=== PATIENT | male | born 1960 | race Hispanic/Latino ===

== ENCOUNTER 2023-02-27 18:44 | Inpatient (IN) | payer OTHER ==
[~2023-02-27] VITALS: Ht 165.1 cm; Wt 83.9 kg
[2023-02-27] MEDS ORDERED: ONDANSETRON HCL INJ 2MG/ML 2ML 2 MG/ML VIAL IV STA (18:58)
[2023-02-27] MEDS ORDERED: Morphine 4mg INJECTION 4 MG/ML INJ IV ONE (19:00)
[2023-02-27] MEDS ORDERED: SODIUM CHLORIDE 0.9% 1000ML 1,000 ML IV ONE (19:00)
[2023-02-27 19:10] LABS: BASOPHILS % 0.1 % (0.0-1.0); HEMATOCRIT 46.1 % (38.2-49.6); HEMOGLOBIN 15.4 g/dL (14.0-18.0); LYMPHOCYTES # (AUTO) 0.6 (1.0-3.2); LYMPHOCYTES % 3.3 % (18.0-39.1); MEAN CORPUSCULAR HEMOGLOBIN 28.3 pg (28-32); MEAN CORPUSCULAR HGB CONC 33.4 g/dL (31-35); MEAN CORPUSCULAR VOLUME 84.7 fL (81-99); MONOCYTES # (AUTO) 0.8 (0.2-0.8); NEUTROPHILS # (AUTO) 17.6 (2.1-6.9); NEUTROPHILS % 92.3 % (38.7-80.0); PLATELET COUNT 339 x10e3/uL (140-360); RED BLOOD COUNT 5.44 x10e6/uL (4.3-5.7); RED CELL DISTRIBUTION WIDTH 13.4 % (11.7-14.4)
[2023-02-27 19:26] LABS: ALBUMIN 4.4 g/dL (3.5-5.0); ANION GAP 17.2 mmol/L (8-16); CALCIUM 9.8 mg/dL (8.4-10.2); CREATININE, SERUM 1.43 mg/dL (0.72-1.25); POTASSIUM 3.2 mmol/L (3.5-5.1)
[2023-02-27] MEDS: FENTANYL CITRATE/PF 100MCG/2 ML INJ IV ONE ×3 (21:00→21:41)
[2023-02-27] MEDS ORDERED: FENTANYL CITRATE/PF 100MCG/2 ML INJ IV ONE (21:15)
[2023-02-27] MEDS: SODIUM CHLORIDE 0.9% 1000ML 1,000 ML IV SCH (21:32)
[2023-02-27 21:58] LABS: CLARITY,URINE CLEAR (CLEAR); COLOR,URINE YELLOW (YELLOW); KETONES,URINE 2+ (NEGATIVE); LEUKOCYTE ESTERASE ,URINE NEGATIVE (NEGATIVE); NITRITE,URINE NEGATIVE (NEGATIVE); PROTEIN,URINE DIPSTICK TRACE (NEGATIVE); URINE UROBILINOGEN 0.2 mg/dL (0.2 - 1)
[2023-02-27 22:05] LABS: BACTERIA,URINE FEW /HPF; EPITHELIAL CELLS,URINE RARE /LPF; RBC,URINE 0-5 /HPF (0-5); WBC,URINE (MAN) 0-5 /HPF (0-5)
[2023-02-27] MEDS: Morphine 4mg INJECTION 4 MG/ML INJ IV PRN (22:54)
[2023-02-27] MEDS: ONDANSETRON HCL INJ 2MG/ML 2ML 2 MG/ML VIAL IV PRN (22:54)
[2023-02-27 23:53] VITALS: BP 142/93; PULSE 63; RESP 20; TEMP 97.7; O2SAT 100
[2023-02-28] VITALS (9 sets, daily range): BP systolic 132–157; BP diastolic 93–101; PULSE 63–81; RESP 18–20; TEMP 97.1–99.4; O2SAT 96–100
[2023-02-28] MEDS ORDERED: LISINOPRIL10 MG PO (00:14)
[2023-02-28] MEDS ORDERED: HYGROTON25 MG PO (00:14)
[2023-02-28] MEDS ORDERED: AMLODIPINE BESY10 MG PO (00:14)
[2023-02-28] MEDS ORDERED: FLOMAX0.4 MG PO (00:14)
[2023-02-28] MEDS: Morphine 4mg INJECTION 4 MG/ML INJ IV PRN ×5 (03:24→22:15)
[2023-02-28] MEDS: ONDANSETRON HCL INJ 2MG/ML 2ML 2 MG/ML VIAL IV PRN ×4 (03:24→17:56)
[2023-02-28] MEDS: SODIUM CHLORIDE 0.9% 1000ML 1,000 ML IV SCH ×4 (05:04→22:13)
[2023-02-28 05:19] LABS: BASOPHILS % 0.1 % (0.0-1.0); HEMATOCRIT 47.1 % (38.2-49.6); HEMOGLOBIN 15.7 g/dL (14.0-18.0); LYMPHOCYTES # (AUTO) 0.7 (1.0-3.2); LYMPHOCYTES % 3.4 % (18.0-39.1); MEAN CORPUSCULAR HEMOGLOBIN 28.6 pg (28-32); MEAN CORPUSCULAR HGB CONC 33.3 g/dL (31-35); MEAN CORPUSCULAR VOLUME 85.9 fL (81-99); NEUTROPHILS # (AUTO) 17.4 (2.1-6.9); PLATELET COUNT 314 x10e3/uL (140-360); RED BLOOD COUNT 5.48 x10e6/uL (4.3-5.7); RED CELL DISTRIBUTION WIDTH 13.3 % (11.7-14.4)
[2023-02-28 05:40] LABS: ANION GAP 14.2 mmol/L (8-16); CREATININE, SERUM 0.99 mg/dL (0.72-1.25); POTASSIUM 3.2 mmol/L (3.5-5.1)
[2023-02-28] MEDS ORDERED: MELATONIN 5 MG TABLET PO PRN (08:00)
[2023-02-28] MEDS ORDERED: POTASSIUM CHLORIDE 20MEQ/100ML 100 ML IV ONE (08:30)
[2023-02-28 09:21] LABS: CHOL/HDL RATIO 3.5 (3.9-4.7)
[2023-02-28] MEDS ORDERED: HYDRALAZINE HCL 20 MG/ML VIAL IV PRN (09:30)
[2023-02-28] MEDS ORDERED: GADOBENATE DIMEGLUMINE 1 ML IV ONE (11:59)
[2023-02-28] MEDS: ENOXAPARIN SOD INJ 40 MG/0.4 ML SYR SC SCH (17:56)
[2023-03-01] VITALS (8 sets, daily range): BP systolic 123–145; BP diastolic 76–95; PULSE 72–82; RESP 18; TEMP 97.7–99.1; O2SAT 94–97
[2023-03-01 04:40] LABS: BASOPHILS % 0.2 % (0.0-1.0); EOSINOPHILS % 0.1 % (0.0-6.0); HEMATOCRIT 41.8 % (38.2-49.6); HEMOGLOBIN 13.8 g/dL (14.0-18.0); LYMPHOCYTES # (AUTO) 1.2 (1.0-3.2); MEAN CORPUSCULAR HEMOGLOBIN 28.6 pg (28-32); MEAN CORPUSCULAR VOLUME 86.5 fL (81-99); MONOCYTES # (AUTO) 1.4 (0.2-0.8); MONOCYTES % 7.3 % (4.4-11.3); NEUTROPHILS % 85.8 % (38.7-80.0); PLATELET COUNT 244 x10e3/uL (140-360); RED BLOOD COUNT 4.83 x10e6/uL (4.3-5.7); RED CELL DISTRIBUTION WIDTH 13.9 % (11.7-14.4)
[2023-03-01 04:54] LABS: ANION GAP 11.2 mmol/L (8-16); CALCIUM 8.3 mg/dL (8.4-10.2); CREATININE, SERUM 0.91 mg/dL (0.72-1.25); POTASSIUM 3.2 mmol/L (3.5-5.1)
[2023-03-01] MEDS: SODIUM CHLORIDE 0.9% 1000ML 1,000 ML IV SCH ×2 (06:00→13:29)
[2023-03-01] MEDS ORDERED: POTASSIUM CHLORIDE 20MEQ/100ML 100 ML IV ONE ×2 (08:30→21:30)
[2023-03-01] MEDS: ENOXAPARIN SOD INJ 40 MG/0.4 ML SYR SC SCH (17:07)
[2023-03-01] MEDS ORDERED: POTASSIUM CHLORIDE 20 MEQ TAB CR PO ONE (20:45)
[2023-03-01] MEDS: Morphine 4mg INJECTION 4 MG/ML INJ IV PRN (21:04)
[2023-03-02] MEDS: SODIUM CHLORIDE 0.9% 1000ML 1,000 ML IV SCH ×4 (00:12→21:20)
[2023-03-02 05:01] LABS: BASOPHILS # (AUTO) 0.1 (0.0-0.1); BASOPHILS % 0.3 % (0.0-1.0); EOSINOPHILS % 0.2 % (0.0-6.0); LYMPHOCYTES # (AUTO) 1.2 (1.0-3.2); LYMPHOCYTES % 8.1 % (18.0-39.1); MEAN CORPUSCULAR HEMOGLOBIN 28.5 pg (28-32); MEAN CORPUSCULAR HGB CONC 31.6 g/dL (31-35); MEAN CORPUSCULAR VOLUME 90.3 fL (81-99); NEUTROPHILS # (AUTO) 12.2 (2.1-6.9); NEUTROPHILS % 83.9 % (38.7-80.0); PLATELET COUNT 214 x10e3/uL (140-360); RED BLOOD COUNT 4.21 x10e6/uL (4.3-5.7); RED CELL DISTRIBUTION WIDTH 13.8 % (11.7-14.4)
[2023-03-02 05:23] LABS: ANION GAP 10.4 mmol/L (8-16); CALCIUM 8.5 mg/dL (8.4-10.2); CREATININE, SERUM 0.74 mg/dL (0.72-1.25); POTASSIUM 3.4 mmol/L (3.5-5.1)
[2023-03-02 05:24] LABS: ALBUMIN 2.7 g/dL (3.5-5.0); ALBUMIN/GLOBULIN RATIO 0.8 (0.8-2.0)
[2023-03-02] MEDS ORDERED: POTASSIUM CHLORIDE 10MEQ/100ML 300 ML IV ONE (08:30)
[2023-03-02 09:27] VITALS: BP 131/84; PULSE 73; RESP 18; TEMP 98.4; O2SAT 99
[2023-03-02 09:29] VITALS: BP 131/84; PULSE 73; RESP 18; TEMP 98.4; O2SAT 99
[2023-03-02] MEDS: Morphine 4mg INJECTION 4 MG/ML INJ IV PRN ×2 (09:44→21:10)
[2023-03-02 11:50] VITALS: BP 134/88; PULSE 71; RESP 18; TEMP 99; O2SAT 99
[2023-03-02 15:30] VITALS: BP 138/95; PULSE 72; RESP 20; TEMP 99.1; O2SAT 99
[2023-03-02] MEDS: ENOXAPARIN SOD INJ 40 MG/0.4 ML SYR SC SCH (16:16)
[2023-03-02 20:00] VITALS: BP 131/83; PULSE 73; RESP 18; TEMP 98.7; O2SAT 100
[2023-03-02] MEDS: ONDANSETRON HCL INJ 2MG/ML 2ML 2 MG/ML VIAL IV PRN (21:10)
[2023-03-03] VITALS: BP 123/85; PULSE 63; RESP 18; TEMP 98.2; O2SAT 100
[2023-03-03 04:00] VITALS: BP 129/90; PULSE 63; RESP 18; TEMP 97.6; O2SAT 100
[2023-03-03 05:51] LABS: BASOPHILS % 0.4 % (0.0-1.0); EOSINOPHILS # (AUTO) 0.1 (0.0-0.4); EOSINOPHILS % 1.1 % (0.0-6.0); HEMATOCRIT 34.9 % (38.2-49.6); HEMOGLOBIN 10.9 g/dL (14.0-18.0); LYMPHOCYTES # (AUTO) 1.6 (1.0-3.2); MEAN CORPUSCULAR HEMOGLOBIN 28.3 pg (28-32); MEAN CORPUSCULAR HGB CONC 31.2 g/dL (31-35); MEAN CORPUSCULAR VOLUME 90.6 fL (81-99); MONOCYTES # (AUTO) 0.9 (0.2-0.8); MONOCYTES % 8.1 % (4.4-11.3); NEUTROPHILS # (AUTO) 8.6 (2.1-6.9); NEUTROPHILS % 75.8 % (38.7-80.0); PLATELET COUNT 218 x10e3/uL (140-360); RED BLOOD COUNT 3.85 x10e6/uL (4.3-5.7); RED CELL DISTRIBUTION WIDTH 13.7 % (11.7-14.4)
[2023-03-03 06:25] LABS: ALBUMIN 2.6 g/dL (3.5-5.0); ALBUMIN/GLOBULIN RATIO 0.7 (0.8-2.0); ANION GAP 10.4 mmol/L (8-16); CALCIUM 8.2 mg/dL (8.4-10.2); CREATININE, SERUM 0.76 mg/dL (0.72-1.25); POTASSIUM 3.4 mmol/L (3.5-5.1)
[2023-03-03] MEDS: SODIUM CHLORIDE 0.9% 1000ML 1,000 ML IV SCH (09:10)
[2023-03-03 09:14] VITALS: BP 151/92; PULSE 65; RESP 20; TEMP 98; O2SAT 98
[2023-03-03] MEDS ORDERED: POTASSIUM CHLORIDE 20 MEQ TAB CR PO ONE (11:00)
[2023-03-03 12:25] VITALS: BP 150/85; PULSE 61; RESP 20; TEMP 97.7; O2SAT 100
[2023-03-03] MEDS ORDERED: PANTOPRAZOLE SO40 MG PO (12:31)
[2023-03-05] MEDS ORDERED: METRONIDAZOLE500 MG PO (09:59)
[2023-03-05] MEDS ORDERED: CIPRO500 MG PO (09:59)
== END 2023-03-03 13:47 | disposition home or self-care (01) | DRG 440 ==
LOC: ER 18:50 → ERHOLD 19:53 → MED/SURG 23:31 → OBSVTOIN 02-28 09:33 → MED/SURG3 03-02 17:00
PROVIDERS: ADMIT Family Medicine Adult Medicine; ATTEND Family Medicine Adult Medicine
DX: K85.90 Acute pancreatitis without necrosis or infection, unspecified (principal); I10 Essential (primary) hypertension; E66.9 Obesity, unspecified; K76.0 Fatty (change of) liver, not elsewhere classified; K21.9 Gastro-esophageal reflux disease without esophagitis; N40.0 Benign prostatic hyperplasia without lower urinary tract symptoms; F10.11 Alcohol abuse, in remission; K86.1 Other chronic pancreatitis; Z79.899 Other long term (current) drug therapy; Z68.30 Body mass index [BMI] 30.0-30.9, adult
CPT/HCPCS: 0223U; 36415; 71045; 74183; 76705; 80048; 80053; 80061; 81001; 83690; 83735; 84484; 85025; 87324; 87449; 93005; 96361; 99284; G0378; J1650; J2270; J2405; J2543; J3480; J7030